=== PATIENT | female | born 1965 | race Caucasian/White ===

== ENCOUNTER 2019-05-07 19:31 | Emergency (ER) | payer OTHER ==
[~2019-05-07] VITALS: Ht 160 cm; Wt 68.0 kg
[~2019-05-07 19:31] MED LIST: HYDROCODONE-AP1 EAC6 PO; LEUCOVORIN CALCI5 M2 PO; METHOTREXATE 22.5 MG PO; MOTION RELIEF25 MG PO; NAPROSYN500 MG PO
[2019-05-07] MEDS ORDERED: NORCO 5-325 TA1 EAC1 PO (19:55)
[2019-05-07] MEDS ORDERED: FAMCYCLOVIR 50500 M1 PO (19:55)
[2019-05-07 20:09] VITALS: BP 152/94
== END 2019-05-07 20:11 | disposition home or self-care (01) ==
LOC: M.ERS 19:31
DX: B02.9 Zoster without complications (principal); M06.9 Rheumatoid arthritis, unspecified; Z88.0 Allergy status to penicillin; Z88.2 Allergy status to sulfonamides

== ENCOUNTER → 2019-08-11 | Outpatient (CLI) | payer OTHER ==
[~2019-08-11] MED LIST changes: +FAMCYCLOVIR 50500 M1 PO; +NORCO 5-325 TA1 EAC1 PO
== END ==
LOC: M.RAD 08:56
DX: Z12.31 Encounter for screening mammogram for malignant neoplasm of breast (principal)

== ENCOUNTER → 2020-07-07 | Outpatient (CLI) | payer OTHER | LOC: M.MRI 15:19 | PROVIDERS: ATTEND Orthopaedic Surgery | DX: M75.02 Adhesive capsulitis of left shoulder (principal); M75.01 Adhesive capsulitis of right shoulder ==

== ENCOUNTER → 2020-07-23 | Day surgery (SDC) | payer OTHER ==
[~2020-07-23] MED LIST changes: +COMBIPATCH 0.01 EACH TRANSDERM; +OXYCODONE HCL5 MG PO
--- NOTE | 2020-07-28 08:21 | OP ---
[address] [address] OPERATIVE REPORT Name: GIOVANNY WRIGHT Room: [facility]#: [id number] Admission: 07/23/20 Attend Phys: Joon Orosco DO Discharge: Date of : 63 Report #: [id number] THIS REPORT FOR: //name// cc: VITALIY MEDINA NP, KATHERINE J. NP ~ CC: Joon CORBIN DATE OF SERVICE: 07/23/2020 PREOPERATIVE DIAGNOSIS: 1. Severe adhesive capsulitis of the left shoulder and pain. 2. Left elbow arthrofibrosis. POSTOPERATIVE DIAGNOSES: 1. Severe adhesive capsulitis of the left shoulder and pain. 2. Left elbow arthrofibrosis. SURGERY PERFORMED: 1. Left shoulder arthroscopic surgery with a capsular release, subacromial decompression, and lysis of adhesions. 2. Manipulation under anesthesia of the left elbow. SURGEON: Dr. Orosco. EARRING MAKER: Dr. Fontaine, SECOND [employer]OY[employer]STRUCTIONAL ASSOCIATE: Dr. Rogers. ANESTHESIA: General anesthetic, interscalene block. The patient did receive corticosteroid Kenalog postoperatively to the shoulder joint itself as well as the elbow joint. GROSS FINDINGS: Prior to surgery, patient has had a failed conservative care measure for adhesive capsulitis of the elbow and the shoulder. She did demonstrate intraoperatively prior to her surgery, her forward flexion was only approximately 100 degrees at max, abduction about 80. Her external rotation was 20, her internal rotation was about 50. The patient's post-surgery demonstrated forward flexion about 150 to 60, abduction was 120, external rotation 90, internal rotation, 90. The patient's range of motion of the elbow preoperatively locked extension of 10 degrees of flexion was normal. Post-manipulation was normal in all planes. The patient's gross findings otherwise intraoperatively demonstrated again advanced capsular tightening across the entire shoulder joint on that left side. She demonstrates significant scarring throughout the shoulder, both the glenohumeral [place] [address] OPERATIVE REPORT Name: GIOVANNY WRIGHT Room: [facility]#: [id number] Admission: 07/23/20 Attend Phys: Joon Orosco DO Discharge: Date of : 63 Report #: [id number] subacromial side. No major cuff tear was isolated just a small fraying near the biceps exiting point. The patient did not demonstrate any other gross findings. SURGERY IN DETAIL: The patient was taken to the operating room and placed on operating table, given a general anesthetic, placed in the beach chair position. She underwent a chlorhexidine prep and sterile drape for her left upper extremity surgery. Timeout was called and verified to start with the left shoulder and verified by everyone in the room after she was draped. Surgery began with making a posterior portal incision. Arthroscope was put in the glenohumeral joint and examination was begun with findings stated above. Initially I started with a shaver within the glenohumeral joint, shaved out multiple areas of adhesions and debrided synovitis in this joint as well and this was a global debridement. The patient then did have the Arthrocare wand placed in the shoulder. I again lysed multiple adhesions and did a capsular release from about the 4 o'clock anterior position all the way around the back side. Post-capsular release of the shoulder and cleaned up all the adhesions and the rotator cuff interval area. Her arm significantly moved as stated above. I did place through the scope in the subacromial region, cleaned out a significant amount of bursitis in that area as well all the way over to the AC joint. Arm was placed through motion again and following the motion was as outlined earlier. Portal sites were closed with 4-0 nylon in simple fashion. I did inject the glenohumeral joint, 40 mg Kenalog with 5 mL of 0.25% Marcaine with epinephrine. At this time I manipulated the elbow joint got it into the full motion and I did go ahead and injected the elbow join with 40 mg Kenalog and 1 mL of Xylocaine. The patient did have Xeroform, 4 x 4's, pressure dressing to her left shoulder, chest off the table, taken to recovery in stable condition. I attest I was present for all critical aspects of surgery. Needle, instrument, and sponge counts correct. <ELECTRONICALLY SIGNED> By: Joon Orosco DO 07/28/20 0821 [id number] Orosco DO /jeanette
== END | disposition home or self-care (01) ==
LOC: M.SUR 08:33
PROVIDERS: ATTEND Orthopaedic Surgery
DX: M75.02 Adhesive capsulitis of left shoulder (principal); M25.512 Pain in left shoulder; M24.622 Ankylosis, left elbow; Z20.828 Contact with and (suspected) exposure to other viral communicable diseases; Z79.899 Other long term (current) drug therapy; Z98.890 Other specified postprocedural states

== ENCOUNTER → 2020-09-01 | Outpatient (CLI) | payer OTHER | LOC: M.RAD 08:43 | PROVIDERS: ATTEND Nurse Practitioner Family | DX: Z12.31 Encounter for screening mammogram for malignant neoplasm of breast (principal) ==

== ENCOUNTER → 2020-09-07 | Outpatient (CLI) | payer OTHER | LOC: M.ULTRA 09-02 12:14 → M.RAD 14:32 | PROVIDERS: ATTEND Nurse Practitioner Family | DX: N63.10 Unspecified lump in the right breast, unspecified quadrant (principal); N64.89 Other specified disorders of breast ==